=== PATIENT | male | born 1930 | race African-American/Black ===

== ENCOUNTER 2018-06-23 09:35 | Outpatient (CLI) | payer MEDICARE ==
--- NOTE | 2018-06-23 10:09 | RAD ---
CHEST 2 VIEWS: HISTORY: Weight loss. COMPARISON: 01/12/2010. FINDINGS: Cardiac silhouette and pulmonary vasculature are unremarkable. Mediastinum is midline with aortic ca lcification. No confluent airspace consolidation, pneumothorax, or pleural fluid. Shadows overlie t he lung bases on the frontal view. IMPRESSION: 1. Atherosclerosis. 2. No acute cardiopulmonary abnormalities are otherwise demonstrated. POS: C
== END 2018-06-23 09:36 | disposition home or self-care (01) ==
LOC: BICRAD 09:35
PROVIDERS: ATTEND Internal Medicine
DX: I10 Essential (primary) hypertension (principal); R63.4 Abnormal weight loss; I70.0 Atherosclerosis of aorta
CPT/HCPCS: 71046

== ENCOUNTER 2018-08-14 10:59 | Outpatient (CLI) | payer MEDICARE ==
[2018-08-14 13:00] LABS: #Basophils 0.1 thou/uL (0.0-0.2); #Eosinphils 0.3 thou/uL (0.0-0.7); #Monocytes 0.9 thou/uL (0.11-0.59); %Basophils 1.1 % (0.0-1.0); %Eosinophils 3.5 % (0.0-10.0); %Lymphocytes 31.9 % (21.0-51.0); %Monocytes 9.7 % (0.0-10.0); %Neutrophils 53.7 % (42.0-75.0); Hemoglobin 12.3 g/dL (14.0-18.0); Mean Corpuscular HGB CONC 31.5 g/dL (32.0-36.0); Mean Corpuscular Hemoglobin 28.5 pg (27.0-31.0); Mean Corpuscular Volume 90.3 fL (78.0-98.0); Mean Platelet Volume 7.6 fL (7.4-10.4); Platelet Count 237 thou/uL (130-400); RBC Distribution Width 12.8 % (11.5-14.5); Red Blood Cell (RBC) Count 4.33 mill/uL (4.70-6.10); White Blood Cell (WBC) Count 9.3 thou/uL (4.8-10.8)
[2018-08-14 13:14] LABS: Hemoglobin A1c 4.6 % (4.0-6.0)
[2018-08-14 13:19] LABS: Anion Gap 14 mmol/L (10-20); BUN (Urea Nitrogen) 17 mg/dL (8.4-25.7); Calc. Creatinine Clearance 0 mL/min (70-130); Carbon Dioxide 25 mmol/L (23-31); Chloride 105 mmol/L (98-107); Estimated GFR-MDRD 90; Glucose 68 mg/dL (83-110); Potassium 4.4 mmol/L (3.5-5.1); Sodium 140 mmol/L (136-145)
--- NOTE | 2018-08-14 21:30 | EKG ---
Test Reason : Blood Pressure : / mmHG Vent. Rate : 064 BPM Atrial Rate : 064 BPM P-R Int : 230 ms QRS Dur : 140 ms QT Int : 452 ms P-R-T Axes : 056 028 -12 degrees QTc Int : 466 ms Sinus rhythm with sinus arrhythmia with 1st degree A-V block Right bundle branch block T wave abnormality, consider inferolateral ischemia Abnormal ECG When compared with ECG of 12-JAN-2010 13:07, OK interval has increased Confirmed by Gaye GREY ([id number]) on 08/14/2018 9:29:45 PM Referred By: SARAVANAN Confirmed By:Gaye GREY
== END 2018-08-14 11:00 | disposition home or self-care (01) ==
LOC: LABBT 10:59
PROVIDERS: ATTEND Surgery
DX: Z01.818 Encounter for other preprocedural examination (principal)
CPT/HCPCS: 80048; 83036; 85025; 93005; 93010

== ENCOUNTER 2018-08-14 11:30 | Inpatient (IN) | payer MEDICARE ==
[2018-08-26] MEDS ORDERED: Bupivacaine HCl 0.5%/Epinephrine 1:200,000/PF 30 ml Vial ONE (08:23)
[2018-08-26] MEDS ORDERED: Glycopyrrolate 0.2 MG/ML 5 ML SYRINGE ONE (09:19)
[2018-08-26] MEDS ORDERED: ePHEDrine 50 MG/ML VIAL ONE (09:19)
[2018-08-26] MEDS ORDERED: Lidocaine 1% PF 5 ML VIAL ONE (09:19)
[2018-08-26] MEDS ORDERED: Rocuronium Bromide 10 MG/ML (10ML VIAL) ONE (09:19)
[2018-08-26] MEDS ORDERED: Ondansetron PF 4 MG/2 ML Vial ONE (09:19)
[2018-08-26] MEDS ORDERED: Dexamethasone 20 MG/5 ML VIAL ONE (09:19)
[2018-08-26] MEDS ORDERED: PROPOFOL 200 MG/20 ML VIAL ONE (09:19)
[2018-08-26] MEDS ORDERED: Ketorolac Tromethamine 30 MG/ML VIAL ONE (09:19)
[2018-08-26] MEDS ORDERED: Dexamethasone 4 mg/ml Vial ONE (10:51)
[2018-08-26] MEDS ORDERED: Fentanyl 100 MCG/2 ML VIAL ONE ×2 (10:51→11:23)
[2018-08-26] MEDS ORDERED: Midazolam HCl 2 mg/2 ml Vial ONE (10:51)
[2018-08-26] MEDS ORDERED: Phenylephrine HCL 10 MG/ML VIAL ONE (11:23)
[2018-08-26] MEDS ORDERED: Bupivacaine/Epinephrine 0.25% 30 ML VIAL ONE (11:48)
[2018-08-26] MEDS ORDERED: Sodium Chloride 0.9% 100 ML ONE (12:19)
[2018-08-26] MEDS ORDERED: cefOXitin 2 GM VIAL ONE (12:19)
[2018-08-26] MEDS ORDERED: Ondansetron HCl/PF 4 MG/2 ML Vial IVP PRN (15:12)
[2018-08-26] MEDS ORDERED: Promethazine HCl 25 MG/ML VIAL IM PRN ×2 (15:12→17:01)
[2018-08-26] MEDS ORDERED: Promethazine HCl 25 MG/ML VIAL SLOW IVP PRN (15:12)
[2018-08-26] MEDS ORDERED: Fentanyl 100 MCG/2 ML VIAL SLOW IVP PRN (17:01)
[2018-08-26] MEDS ORDERED: hydrALAZINE 20 MG/ML VIAL SLOW IVP PRN (17:01)
[2018-08-26] MEDS ORDERED: Ondansetron PF 4 MG/2 ML Vial IVP PRN (17:01)
[2018-08-26] MEDS: D5 1/2 NS w/20 mEq KCL 1,000 ML IV SCH (17:36)
[2018-08-26] MEDS ORDERED: Acetaminophen 1,000 MG in Premix Bag 1 BAG IVPB SCH ×2 (18:00→20:00)
[2018-08-26 18:24] VITALS: BMI 23.7
[2018-08-26] MEDS ORDERED: cefOXitin Sodium/Dextrose,Iso 1 GM in Premix Bag 1 BAG IVPB SCH (20:00)
[2018-08-26] MEDS: Enoxaparin Sodium 40 MG/0.4 ML SYRINGE SC SCH (22:02)
[2018-08-26] MEDS: Famotidine 20 MG TAB PO SCH (22:02)
[2018-08-26] MEDS: Famotidine/PF 20 mg/2ml Vial SLOW IVP SCH (22:03)
--- NOTE | 2018-08-26 22:59 | OP ---
DATE OF PROCEDURE: 08/26/2018 PREOPERATIVE DIAGNOSIS: Sigmoid colon cancer. POSTOPERATIVE DIAGNOSIS: Sigmoid colon cancer. PROCEDURE PERFORMED: Laparoscopic sigmoid colectomy with low pelvic anastomosis. ANESTHESIA: General. ESTIMATED BLOOD LOSS: 50 mL. COMPLICATIONS: None. SPECIMEN: Sigmoid colon. DESCRIPTION OF PROCEDURE: The patient was taken to the operating room and laid supine on the operating room table. After general anesthetic was obtained, a Sage was placed. The patient was placed in lithotomy position. His abdomen was shaved, prepped, and draped in a sterile fashion. Left subcostal 5 mm Optiview trocar was placed in the usual fashion without injury and high-flow pneumoperitoneum was obtained. Right lower quadrant 12 mm port, umbilical 5 mm port, and suprapubic 5 mm port were all placed under direct visualization. The patient was placed in Trendelenburg position. The small bowel was brought out of the pelvis. The medial aspect of the sigmoid colon mesentery was incised and opened distally to the rectosigmoid junction. Dissection was taken up above the inferior mesenteric artery. Skeletonization of the base of the inferior mesenteric artery was performed. A medial to lateral dissection was performed through the mesentery. The left ureter was found and excluded from the rest of the dissection and not injured. The inferior mesenteric artery was taken near its base using the laparoscopic LigaSure. Dissection was performed circumferentially around the rectosigmoid junction and laparoscopic stapler was fired across the colon here. The proximal colon was flipped up then and the mobilization along the white line of Toldt was performed up above. The patient did not need splenic flexure mobilization. A 4-cm incision was made in the left lower abdomen and Amado wound retractor was placed through a muscle-splitting incision. This allowed the proximal colon be brought out the abdomen through here. Location for proximal resection was found and a colotomy was made just distal to this. A 31 anvil was passed just proximal here and the sharp end brought on the antimesenteric surface of the colon above. Staple was stapled just proximal to this colotomy. The colon specimen was marked with a suture distally and sent to Path for final diagnosis. The anvil then was able to be brought back through the Amado into the abdomen. The Maado was twisted and held with a Sharmin clamp allowing pneumo insufflation to be reformed. The anvil was able to brought down in the pelvis under no tension. The base of the EEA was brought up through the rectum, sharp end brought down on the antimesenteric surface of the colon below, connected to the colon from above and the stapler was tightened down and fired. There were 2 good rings of tissue, the distal of which was sent as the final distal margin. There was no bleeding in the abdomen. The anastomosis was tested with air insufflation under saline without leakage of air. All port sites were infiltrated using local anesthetic. The 12 mm port site was closed using a GraNee needle and 0 Vicryl tie. All port sites were otherwise removed under direct visualization, pneumoperitoneum was let down. The muscle-splitting incision in the left lower quadrant was closed using PDS anterior posteriorly. The wound was irrigated copiously using sterile solution. The wounds were all irrigated and closed using 4-0 Monocryl and Dermabond. The patient was sent to Recovery in stable condition. All instrument counts, needle counts, and lap counts were correct. Job ID: [id number]
[2018-08-27 05:06] LABS: #Lymphocytes 1.2 thou/uL (1.20-3.40); #Monocytes 1.1 thou/uL (0.11-0.59); #Neutrophils 12.3 thou/uL (1.40-6.50); %Basophils 0.1 % (0.0-1.0); %Eosinophils 0.1 % (0.0-10.0); %Monocytes 7.7 % (0.0-10.0); %Neutrophils 84.1 % (42.0-75.0); Hemoglobin 10.8 g/dL (14.0-18.0); Mean Corpuscular HGB CONC 32.6 g/dL (32.0-36.0); Mean Corpuscular Hemoglobin 28.9 pg (27.0-31.0); Mean Corpuscular Volume 88.6 fL (78.0-98.0); Mean Platelet Volume 7.4 fL (7.4-10.4); Platelet Count 238 thou/uL (130-400); RBC Distribution Width 12.8 % (11.5-14.5); Red Blood Cell (RBC) Count 3.73 mill/uL (4.70-6.10); White Blood Cell (WBC) Count 14.7 thou/uL (4.8-10.8)
[2018-08-27 05:19] LABS: Anion Gap 12 mmol/L (10-20); BUN (Urea Nitrogen) 18 mg/dL (8.4-25.7); Calc. Creatinine Clearance 55 mL/min (70-130); Calcium 8.8 mg/dL (7.8-10.44); Carbon Dioxide 22 mmol/L (23-31); Chloride 103 mmol/L (98-107); Estimated GFR-MDRD 78; Glucose 147 mg/dL (83-110); Potassium 4.2 mmol/L (3.5-5.1); Sodium 133 mmol/L (136-145)
[2018-08-27] MEDS: Acetaminophen 1,000 MG in Premix Bag 1 BAG IVPB SCH ×3 (05:34→17:01)
[2018-08-27] MEDS: D5 1/2 NS w/20 mEq KCL 1,000 ML IV SCH (05:40)
[2018-08-27] MEDS ORDERED: cefOXitin Sodium/Dextrose,Iso 1 GM in Premix Bag 50 BAG IVPB SCH (06:00)
[2018-08-27] MEDS: Famotidine 20 MG TAB PO SCH ×2 (08:48→20:02)
[2018-08-27] MEDS: Allopurinol 100 MG TAB PO SCH (08:48)
[2018-08-27] MEDS: Famotidine/PF 20 mg/2ml Vial SLOW IVP SCH ×2 (08:49→20:02)
[2018-08-27] MEDS: Lisinopril/Hydrochlorothiazide 10 mg/12.5 mg Tablet PO SCH (08:50)
[2018-08-27] MEDS: Metoprolol Tartrate 50 MG TAB PO SCH (08:51)
[2018-08-27] MEDS ORDERED: traMADol HCl 50 MG TAB PO PRN (11:01)
[2018-08-27] MEDS: Enoxaparin Sodium 40 MG/0.4 ML SYRINGE SC SCH (20:02)
[2018-08-27] MEDS ORDERED: Prevnar 13-Val Conj/PF 0.5 ML SYRINGE IM ONE (21:00)
[2018-08-28] MEDS: Famotidine/PF 20 mg/2ml Vial SLOW IVP SCH ×2 (09:02→22:18)
[2018-08-28] MEDS: Allopurinol 100 MG TAB PO SCH (09:42)
[2018-08-28] MEDS: Famotidine 20 MG TAB PO SCH ×2 (09:42→22:18)
[2018-08-28] MEDS: Lisinopril/Hydrochlorothiazide 10 mg/12.5 mg Tablet PO SCH (09:42)
[2018-08-28] MEDS: Metoprolol Tartrate 50 MG TAB PO SCH (09:43)
[2018-08-28] MEDS: Enoxaparin Sodium 40 MG/0.4 ML SYRINGE SC SCH (22:18)
[2018-08-29 05:37] LABS: #Eosinphils 0.3 thou/uL (0.0-0.7); #Lymphocytes 2.6 thou/uL (1.20-3.40); #Monocytes 1.2 thou/uL (0.11-0.59); #Neutrophils 9.8 thou/uL (1.40-6.50); %Basophils 0.1 % (0.0-1.0); %Eosinophils 1.9 % (0.0-10.0); %Lymphocytes 18.6 % (21.0-51.0); %Monocytes 8.6 % (0.0-10.0); %Neutrophils 70.9 % (42.0-75.0); Hemoglobin 11.6 g/dL (14.0-18.0); Mean Corpuscular Hemoglobin 28.7 pg (27.0-31.0); Mean Corpuscular Volume 89.6 fL (78.0-98.0); Mean Platelet Volume 7.5 fL (7.4-10.4); Platelet Count 273 thou/uL (130-400); Red Blood Cell (RBC) Count 4.05 mill/uL (4.70-6.10); White Blood Cell (WBC) Count 13.9 thou/uL (4.8-10.8)
[2018-08-29 05:55] LABS: Anion Gap 12 mmol/L (10-20); BUN (Urea Nitrogen) 10 mg/dL (8.4-25.7); Calc. Creatinine Clearance 66 mL/min (70-130); Calcium 10.2 mg/dL (7.8-10.44); Carbon Dioxide 26 mmol/L (23-31); Chloride 103 mmol/L (98-107); Estimated GFR-MDRD Greater than 90; Glucose 90 mg/dL (83-110); Magnesium 2.1 mg/dL (1.6-2.6); Phosphorus 3.5 mg/dL (2.3-4.7); Potassium 4.2 mmol/L (3.5-5.1); Sodium 137 mmol/L (136-145)
[2018-08-29] MEDS: Famotidine/PF 20 mg/2ml Vial SLOW IVP SCH (07:40)
[2018-08-29] MEDS: Allopurinol 100 MG TAB PO SCH (07:56)
[2018-08-29] MEDS: Metoprolol Tartrate 50 MG TAB PO SCH (07:56)
[2018-08-29] MEDS: Famotidine 20 MG TAB PO SCH (07:56)
[2018-08-29] MEDS: Lisinopril/Hydrochlorothiazide 10 mg/12.5 mg Tablet PO SCH (07:56)
[2018-08-29 16:23] VITALS: BP 92/56; TEMP 98.2
== END 2018-08-29 17:27 | disposition home or self-care (01) | DRG 331 ==
LOC: SURG A 08-26 10:08
PROVIDERS: ADMIT Surgery; ATTEND Surgery
PROC: 0DTN4ZZ Resection of Sigmoid Colon, Percutaneous Endoscopic Approach (ICD-10-PCS; principal; 2018-08-26)
DX: C18.7 Malignant neoplasm of sigmoid colon (principal); M10.9 Gout, unspecified
CPT/HCPCS: 36415; 74177; 80048; 83735; 84100; 85025; 88305; 88309; 88313; 88342; J0131; J0694; J1100; J1650; J2250; J2370; J3010; J3490; Q9966; S0028

== ENCOUNTER 2018-08-25 08:48 | Outpatient (CLI) | payer MEDICARE ==
[2018-08-25] MEDS ORDERED: ISOVUE-370 76%-LOCM 1 ML ONE (09:33)
--- NOTE | 2018-08-25 10:03 | CT ---
CT ABDOMEN AND PELVIS WITH IV CONTRAST 08/25/2018 CLINICAL INFORMATION: : Adenocarcinoma. Rectal bleeding. COMPARISON: 03/16/2007. Technique: Multiple contiguous axial CT images are obtained through the abdomen and pelvis with IV contrast. Cor onal reformatted images are provided. FINDINGS: Lower Chest: Prominent bulla seen at the medial right lung base. There is mild dependent atelectasis versus scarring. No discrete pulmonary nodule or mass is seen. Vessels: Vascular calcifications are seen in the abdominal aorta and involving the iliac arteries. In cidental note is again made of a retroaortic left renal vein. Abdomen: Portal vein:Patent Gallbladder: Within normal limits for CT imaging. Liver: There is a subcentimeter hypodense lesion seen within posterior segment right hepatic lobe whi ch is stable in size and appearance compared to the study in 2007 as well as study in 2006 with an additional tiny subcentimeter hypodense lesion near the anterior dome of the liver also stable from t he prior exams suggesting benign findings. Spleen: within normal limits. Pancreas: within normal limits. Adrenals: within normal limits. Kidneys: Again noted is the dominant right renal cyst measuring 4 cm with subcentimeter too small to characterize hypodense lesions also again seen in each kidney which are nonspecific but also statistically likely represent small renal cysts. Bowel: There is an area of masslike wall thickening involving the sigmoid colon which likely correspo nds to patient's known neoplastic process involving the colon. No evidence of bowel obstruction, but there is moderate amount of retained fecal material seen in the colon proximal to this region. Co lonic diverticulosis is seen. Appendix: The appendix is visualized and normal in caliber. Peritoneum: No ascites or free air; no fluid collection. Mesentery and Retroperitoneum: No enlarged mesenteric or retroperitoneal lymph nodes. Abdominal Wall: Small defect is seen in the midline at the level of the umbilicus probably related to small umbilical hernia. Loop of bowel extends up to this region, but there is no evidence of a bowel obstruction. Pelvis: Reproductive Organs: No pelvic masses. Pelvis within normal limits. Bladder: Decompressed but otherwise grossly within normal limits. Bones: Multilevel degenerative changes are seen in the lumbar spine. No lytic or sclerotic osseous le jessie is identified. There is grade 1 anterolisthesis of L5 on S1 with prominent facet hypertrophic changes at this level. IMPRESSION: 1. Colonic masslike wall thickening involving the sigmoid colon likely corresponding to patient's kno wn colonic neoplastic process. 2. No CT findings to suggest metastatic disease. 3. Dominant right renal cyst with stable subcentimeter too small to characterize hypodense lesions in each kidney also statistically likely representing cysts. 4. Stable tiny subcentimeter hypodensities within each lobe of the liver which are unchanged dating b ack to study in 2006 suggesting a benign finding. 5. Colonic diverticulosis.
== END 2018-08-25 08:49 | disposition home or self-care (01) ==
LOC: BICCT 08:48
PROVIDERS: ATTEND Surgery
DX: C18.9 Malignant neoplasm of colon, unspecified (principal); K63.89 Other specified diseases of intestine; N28.1 Cyst of kidney, acquired; K76.89 Other specified diseases of liver; N28.9 Disorder of kidney and ureter, unspecified; K57.30 Diverticulosis of large intestine without perforation or abscess without bleeding
CPT/HCPCS: 74177; Q9966

== ENCOUNTER 2018-11-30 07:54 | Outpatient (CLI) | payer MEDICARE ==
--- NOTE | 2018-11-30 10:57 | CT ---
CT OF THE THORAX WITH IV CONTRAST: Date: 11/30/18 INDICATION: History of colon cancer. COMPARISON: CT of the chest dated 04/01/06. CT abdomen and pelvis dated 08/25/18. 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 No additional area o f suspicious pulmonary nodularity is evident. No definite pathologically enlarged lymph node is evident. 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 There are coronary artery and thoracic aortic calcifications. No patho logically enlarged lymph nodes are evident. There is bilateral male gynecomastia. Benign-appearing fa t density lipoma within the left pleural space is slightly more pronounced than on the comparison exa mination of 04/01/16 measuring 1.8 cm, image 34 of series 2. Tiny hypodensities within the liver are stable, suspicious for cysts. Right renal cysts are stable ap pearing. No pathologically enlarged lymph nodes are evident within the upper abdomen. There is diffuse osteopenia. There is scattered degenerative and osteoarthritic change. No suspicious osseous lesion is evident. IMPRESSION: 1. Area of reticular nodularity within apical posterior segment of the left upper lobe and backgroun d of moderate to severe emphysema is suspicious for bronchiolitis. Recommend short-term follow-up in 6-8 weeks to document resolution. 2. Benign-appearing fat density lipoma within the left pleural space is slightly more pronounced myranda n on the comparison examination of 04/01/16 measuring 1.8 cm, image 34 of series 2. 3. Stable hepatic and right renal cysts. 4. Mild bilateral male gynecomastia. POS: OFF
[2018-11-30] MEDS ORDERED: ISOVUE-370 76%-LOCM 1 ML ONE (12:30)
== END 2018-11-30 07:55 | disposition home or self-care (01) ==
LOC: BICCT 07:54
PROVIDERS: ATTEND Internal Medicine Hematology & Oncology
DX: C18.7 Malignant neoplasm of sigmoid colon (principal); J43.9 Emphysema, unspecified; N28.1 Cyst of kidney, acquired; K76.89 Other specified diseases of liver; N62 Hypertrophy of breast; D17.1 Benign lipomatous neoplasm of skin and subcutaneous tissue of trunk
CPT/HCPCS: 71260; 82565; Q9966

== ENCOUNTER 2019-01-25 08:28 | Outpatient (CLI) | payer MEDICARE ==
--- NOTE | 2019-01-25 09:18 | CT ---
CT chest with IV contrast HISTORY: Colon cancer. Lung nodule. Follow-up. COMPARISON: 11/30/2018. FINDINGS: Lungs are hyperinflated. Scattered bullae, most pronounced at the medial aspect of the righ t posterior lung base. The small oval nonspecific subpleural nodule just superior to the bullae is stable. Widespread scattered mild peripheral interstitial thickening. Stable. Within the posterior aspect of the left upper lobe, the area of mild peripheral interstitial thickening and nodularity is stable. No new parenchymal abnormalities. No dominant mass. The lobular pleural focus of fat density along the lateral aspect of the left upper chest is stable. Calcification throughout the arterial structures. Tiny nonspecific low-density lesions within the partially visualized liver and the thyroid gland. Right renal cysts partially visualized. IMPRESSION: Stable CT appearance of the area of mild peripheral interstitial thickening/bronchiolitis within the posterior aspect of the left upper lobe. No focal mass. No new abnormalities are demonstrated. Atherosclerosis. Emphysema and other Chronic-type findings are stable.
[2019-01-25] MEDS ORDERED: Iopamidol-370 76% 500 ML 1 ML ONE (11:20)
== END 2019-01-25 08:29 | disposition home or self-care (01) ==
LOC: BICCT 08:28
PROVIDERS: ATTEND Internal Medicine Hematology & Oncology
DX: C18.7 Malignant neoplasm of sigmoid colon (principal); R91.1 Solitary pulmonary nodule; J43.9 Emphysema, unspecified; I70.0 Atherosclerosis of aorta; N28.1 Cyst of kidney, acquired
CPT/HCPCS: 71260; 82565; Q9967

== ENCOUNTER 2019-08-12 09:55 | Outpatient (CLI) | payer MEDICARE ==
--- NOTE | 2019-08-12 12:03 | CT ---
Exam: Chest CT with contrast Abdomen CT with contrast Pelvic CT with contrast HISTORY: Colon cancer. Surveillance. Correlation: None COMPARISON: 01/25/2019, 11/30/2018, 08/25/2018 FINDINGS: Chest CT: Mediastinum: No mass, lymphadenopathy or hematoma. Aorta: Atherosclerosis. No aneurysm, dissection or periaortic fat stranding. Heart: Normal heart size. No pericardial effusion. There are coronary artery calcifications are Trachea and central bronchi: Patent Pleural spaces: No pleural effusions Right lung: Stable emphysematous changes involving the right lower lobe. Previously noted nodularity adjacent to the large bulla in the right lower lobe is slightly less evident on the current examination measures approximately 0.6 cm. No new suspicious masses or areas of consolidation Left lung:Stable linear densities in the left upper lobe pleural-based prominence along the lateral a spect of left upper lobe compatible with focal pleural fat. Additional stable linear densities in the left lower lobe and lingula. No new suspicious masses or areas of consolidation. Pneumothorax: None Abdomen CT: Gallbladder: Unremarkable Portal vein: Patent Liver: No abnormal enhancing masses. Subcentimeter hypodensities in the right hepatic lobe.. Spleen: Appropriate enhancement Pancreas: Appropriate enhancement Adrenal glands: Appropriate enhancement Lymphadenopathy: No gastrohepatic, retrocrural or periportal lymphadenopathy Kidneys: Symmetric enhancement. No obstructive uropathy. Stable hypodensities in the left or right re nal cortex. Mesentery: No mass, lymphadenopathy, free air or free fluid Alimentary canal: No normal caliber small bowel loops. Ileocecal junction is normal. Scattered fecal material and contrast in the nondistended, nondilated colon. Normal caliber appendix. There does appear to be anastomotic suture chain the level of the proximal sigmoid colon. No associated masses o r obstruction. Adjacent mesentery does not demonstrate any adenopathy. Pelvis CT: No mass, lymphadenopathy, free air or free fluid. Mildly enlarged prostate gland. Osseous structures:No lytic or blastic lesions in the osseous structures. Grade 1 anterolisthesis of L5 upon S1 is unchanged. IMPRESSION: 1. No CT evidence of tumor recurrence. 2. Stable hypodensities in the liver 3. Findings compatible with partial resection sigmoid colon. No evidence of adjacent metastases. 4. Stable chronic emphysematous changes of the lung parenchyma.
[2019-08-12] MEDS ORDERED: Iopamidol-370 76% 500 ML 1 ML ONE (13:06)
== END 2019-08-12 09:56 | disposition home or self-care (01) ==
LOC: BICCT 09:55
PROVIDERS: ATTEND Internal Medicine Hematology & Oncology
DX: C18.7 Malignant neoplasm of sigmoid colon (principal); R93.2 Abnormal findings on diagnostic imaging of liver and biliary tract
CPT/HCPCS: 71260; 74177; Q9967

== ENCOUNTER 2020-07-24 10:15 | Outpatient (CLI) | payer MEDICARE ==
[~2020-07-24 10:15] MED LIST: Iopamidol-370 76% 500 ML 1 ML ONE
== END 2020-07-24 10:16 | disposition home or self-care (01) ==
LOC: BICCT 10:15
PROVIDERS: ATTEND Internal Medicine Hematology & Oncology
DX: C18.7 Malignant neoplasm of sigmoid colon (principal); R91.8 Other nonspecific abnormal finding of lung field
CPT/HCPCS: 71260; 74177; 80053; 82378; 82565; 82728; 83540; 83550; Q9967

== ENCOUNTER 2020-07-28 10:25 | Outpatient (CLI) | payer MEDICARE ==
[2020-07-28 12:13] LABS: Hemoglobin 12.4 g/dL (13.5-17.5); Mean Corpuscular HGB CONC 31.6 g/dL (32.0-36.0); Mean Corpuscular Hemoglobin 28.4 pg (27.0-33.0); Mean Corpuscular Volume 90.1 fl (81.2-95.1); Mean Platelet Volume 9.3 fl (7.4-10.4); Platelet Count 527 10x3/uL (150-450); RBC Distribution Width 13.3 % (11.5-14.5); Red Blood Cell (RBC) Count 4.36 10x6/uL (4.32-5.72); White Blood Cell (WBC) Count 9.4 10x3/uL (3.5-10.5)
[2020-07-28 12:25] LABS: Anion Gap 14 mmol/L (10-20); BUN (Urea Nitrogen) 18 mg/dL (8.4-25.7); Calc. Creatinine Clearance 0 mL/min (70-130); Calcium 10.1 mg/dL (7.8-10.44); Carbon Dioxide 26 mmol/L (23-31); Chloride 105 mmol/L (98-107); Glucose 69 mg/dL (83-110); Potassium 4.4 mmol/L (3.5-5.1); Sodium 141 mmol/L (136-145)
[2020-07-29 00:07] LABS: SARS-CoV-2 PCR by NAA Not Detected (NotDetected)
== END 2020-07-28 10:26 | disposition home or self-care (01) ==
LOC: LABBT 10:25
PROVIDERS: ATTEND Thoracic Surgery (Cardiothoracic Vascular Surgery)
DX: Z01.812 Encounter for preprocedural laboratory examination (principal); I73.9 Peripheral vascular disease, unspecified; Z20.822 Contact with and (suspected) exposure to COVID-19
CPT/HCPCS: 80048; 85027; U0003; U0005

== ENCOUNTER 2020-07-28 10:30 | Inpatient (IN) | payer MEDICARE ==
[2020-07-28 14:56] VITALS: BMI 24.1
[2020-08-03] MEDS ORDERED: Dexamethasone 4 mg/ml Vial ONE (06:25)
[2020-08-03] MEDS ORDERED: EPINEPHrine 1 MG/ML AMP ONE (06:25)
[2020-08-03] MEDS ORDERED: Bupivacaine 0.25% HCL 30 ML VIAL ONE (06:25)
[2020-08-03] MEDS ORDERED: Protamine Sulfate 250 MG/25 ML VIAL ONE (06:25)
[2020-08-03] MEDS ORDERED: Heparin 5,000 UNITS/ML VIAL ONE (06:25)
[2020-08-03] MEDS ORDERED: Protamine Sulfate 50 MG/5 ML VIAL ONE (06:26)
[2020-08-03] MEDS ORDERED: Fentanyl 100 MCG/2 ML VIAL ONE ×2 (06:32→06:33)
[2020-08-03] MEDS ORDERED: Bupivacaine PF 0.5% 30 ML VIAL ONE (06:45)
[2020-08-03] MEDS ORDERED: Ondansetron HCl/PF 4 MG/2 ML Vial IVP PRN (07:00)
[2020-08-03] MEDS ORDERED: Promethazine HCl 25 MG/ML VIAL SLOW IVP PRN (07:00)
[2020-08-03] MEDS ORDERED: Promethazine HCl 25 MG/ML VIAL IM PRN (07:00)
[2020-08-03] MEDS ORDERED: Ondansetron PF 4 MG/2 ML Vial ONE (07:22)
[2020-08-03] MEDS ORDERED: Rocuronium Bromide 10 MG/ML (10ML VIAL) ONE (07:22)
[2020-08-03] MEDS ORDERED: PROPOFOL 200 MG/20 ML VIAL ONE (07:22)
[2020-08-03] MEDS ORDERED: Dexamethasone 20 MG/5 ML VIAL ONE (07:22)
[2020-08-03] MEDS ORDERED: Lidocaine 1% PF 5 ML VIAL ONE (07:22)
[2020-08-03] MEDS ORDERED: PHENYLEPHRINE-NS 100 MCG/ML 10 ML SYRINGE ONE (07:22)
[2020-08-03] MEDS ORDERED: Phenylephrine 10 MG/ML VIAL ONE (08:10)
[2020-08-03] MEDS ORDERED: SUGAMMADEX SODIUM 200 MG/2 ML VIAL ONE (09:32)
[2020-08-03] MEDS ORDERED: Ondansetron PF 4 MG/2 ML Vial IVP PRN (10:48)
[2020-08-03] MEDS ORDERED: Fentanyl 100 MCG/2 ML VIAL SLOW IVP PRN (10:48)
[2020-08-03] MEDS ORDERED: traMADol HCl 50 MG TAB PO PRN ×2 (10:48)
[2020-08-03] MEDS ORDERED: Acetaminophen 325 MG TAB PO PRN (10:48)
[2020-08-03] MEDS ORDERED: hydrALAZINE 20 MG/ML VIAL SLOW IVP PRN (10:48)
[2020-08-03] MEDS: D5 1/2 NS w/20 mEq KCL 1,000 ML IV SCH ×2 (13:34→23:23)
[2020-08-03] MEDS: CEFAZOLIN 2 GM in Premix Bag 1 BAG IVPB SCH ×2 (15:18→21:04)
[2020-08-03] MEDS ORDERED: Simvastatin 10 MG TAB PO SCH (21:00)
[2020-08-03] MEDS: Allopurinol 100 MG TAB PO SCH (21:04)
[2020-08-03] MEDS: Metoprolol Tartrate 50 MG TAB PO SCH (21:05)
[2020-08-04 04:40] LABS: #Lymphocytes 1.5 thou/uL (1.20-3.40); #Monocytes 0.9 thou/uL (0.11-0.59); #Neutrophils 11.8 thou/uL (1.40-6.50); %Basophils 0.1 % (0.0-1.0); %Lymphocytes 10.4 % (21.0-51.0); %Monocytes 6.6 % (0.0-10.0); %Neutrophils 82.9 % (42.0-75.0); Hemoglobin 12.5 g/dL (14.0-18.0); Mean Corpuscular Hemoglobin 30.2 pg (27.0-31.0); Mean Corpuscular Volume 91.5 fL (78.0-98.0); Mean Platelet Volume 7.2 fL (7.4-10.4); Platelet Count 303 thou/uL (130-400); RBC Distribution Width 12.9 % (11.5-14.5); Red Blood Cell (RBC) Count 4.15 mill/uL (4.70-6.10); White Blood Cell (WBC) Count 14.2 thou/uL (4.8-10.8)
[2020-08-04 05:17] LABS: Anion Gap 10 mmol/L (10-20); BUN (Urea Nitrogen) 15 mg/dL (8.4-25.7); Calc. Creatinine Clearance 67 mL/min (70-130); Calcium 9.1 mg/dL (7.8-10.44); Carbon Dioxide 24 mmol/L (23-31); Chloride 108 mmol/L (98-107); Glucose 138 mg/dL (83-110); Potassium 4.1 mmol/L (3.5-5.1); Sodium 138 mmol/L (136-145)
[2020-08-04] MEDS: CEFAZOLIN 2 GM in Premix Bag 1 BAG IVPB SCH (05:22)
[2020-08-04] MEDS ORDERED: Multivit, Therapeutic 1 TAB PO SCH (09:00)
[2020-08-04] MEDS ORDERED: Aspirin 325 MG TAB PO SCH (09:00)
[2020-08-04] MEDS ORDERED: Clopidogrel Bisulfate 75 MG TAB PO SCH (09:00)
[2020-08-04] MEDS ORDERED: Fish Oil 1,000 MG CAP PO SCH (09:00)
[2020-08-04] MEDS ORDERED: Cholecalciferol 1,000 UNITS (25 MCG) TAB PO SCH (09:00)
[2020-08-04] MEDS ORDERED: Lisinopril/Hydrochlorothiazide 10 mg/12.5 mg Tablet PO SCH (09:00)
[2020-08-04] MEDS ORDERED: Aspirin 81 mg Enteric Coated Tablet PO SCH (09:00)
[2020-08-04] MEDS: Metoprolol Tartrate 50 MG TAB PO SCH (10:00)
[2020-08-04] MEDS: Allopurinol 100 MG TAB PO SCH (10:01)
[2020-08-04 12:56] VITALS: BP 97/60; TEMP 98
== END 2020-08-04 14:57 | disposition home or self-care (01) | DRG 254 ==
LOC: EDSTATUS 08-02 10:30 → SURG A 08-03 06:07 → 2NO 08-03 13:28
PROVIDERS: ADMIT Thoracic Surgery (Cardiothoracic Vascular Surgery); ATTEND Thoracic Surgery (Cardiothoracic Vascular Surgery)
PROC: 04CN0ZZ Extirpation of Matter from Left Popliteal Artery, Open Approach (ICD-10-PCS; principal; 2020-08-03)
PROC: 04UN0KZ Supplement Left Popliteal Artery with Nonautologous Tissue Substitute, Open Approach (ICD-10-PCS; 2020-08-03)
DX: I70.212 Atherosclerosis of native arteries of extremities with intermittent claudication, left leg (principal); Z20.822 Contact with and (suspected) exposure to COVID-19; I10 Essential (primary) hypertension; M06.9 Rheumatoid arthritis, unspecified; E78.2 Mixed hyperlipidemia; Z79.899 Other long term (current) drug therapy; Z87.891 Personal history of nicotine dependence; Z85.038 Personal history of other malignant neoplasm of large intestine
CPT/HCPCS: 36415; 80048; 85025; J0171; J0690; J1100; J1642; J1644; J2370; J2405; J2704; J2720; J3010; J3480; S0020

== ENCOUNTER 2020-09-05 10:34 | Outpatient (CLI) | payer MEDICARE | END 2020-09-05 10:35 | disposition home or self-care (01) | LOC: BICCT 10:34 | PROVIDERS: ATTEND Internal Medicine Hematology & Oncology | DX: C18.7 Malignant neoplasm of sigmoid colon (principal); R91.8 Other nonspecific abnormal finding of lung field; Z79.2 Long term (current) use of antibiotics | CPT/HCPCS: 71260; Q9967 ==